=== PATIENT | male | born 1985 | race Hispanic/Latino ===

== ENCOUNTER 2016-06-01 08:48 | Inpatient (IN) | payer OTHER ==
[2016-06-01] MEDS ORDERED: Sodium Chloride 0.9% 1,000 ML IV STA (09:18)
[2016-06-01 09:35] LABS: ADD MANUAL DIFF? NO
[2016-06-01 09:48] LABS: PARTIAL THROMBOPLASTIN TIME 26.1 Seconds (23.7-30.8)
[2016-06-01 09:49] LABS: ALB/GLOB RATIO 1.3 (1.1-1.8); ALKALINE PHOSPHATASE 88 U/L (38-133); ALT/SGPT 83 U/L (7-56); AST/SGOT 65 U/L (15-59); BILIRUBIN,TOTAL 2.6 mg/dL (0.2-1.3); BLOOD UREA NITROGEN 18 mg/dL (7-21); CALCIUM 9.9 mg/dL (8.4-10.5); CARBON DIOXIDE 24 mmol/L (21-33); CHLORIDE 88 mmol/L (98-107); GFR AFRICAN-AMERICAN > 60; GLUCOSE,RANDOM 135 mg/dL (70-110); POTASSIUM 3.2 mmol/L (3.6-5.0); SODIUM 132 mmol/L (132-148); TOTAL PROTEIN 8.8 g/dL (5.8-8.3)
[2016-06-01 09:54] LABS: BASO # 0.01 K/mm3 (0.0-2.0); BASO % 0.1 % (0.0-3.0); GRAN # 15.53 (1.4-6.5); GRAN % 91.4 % (50.0-68.0); HEMATOCRIT 45.8 % (42.0-52.0); LYMPH # 0.7 (1.2-3.4); LYMPH % 4.2 % (22.0-35.0); MEAN CORPUSCULAR HEMOGLOBIN 30.1 pg (25.0-35.0); MEAN CORPUSCULAR HGB CONC 36.2 g/dl (31.0-37.0); MEAN PLATELET VOLUME 9.5 fl (7.0-11.0); MONO # 0.7 (0.1-0.6); MONO % 4.3 % (1.0-6.0); PLATELET COUNT 211 10^3/uL (120.0-450.0); RED CELL DISTRIBUTION WIDTH 13.2 % (11.5-14.5)
--- NOTE | 2016-06-01 10:16 | ED PDOC ---
Arrival/HPI - General Historian: Patient - General Chief Complaint: ENT Problem Time Seen by Provider: 06/01/16 09:14 - History of Present Illness Narrative History of Present Illness (Text): 06/01/16 10:04 31yo mal with PMhx of hypertension, anxiety and alcohol abuse who present with complaint of hiccups, sore throat and nonproductive cough since yesterday. States it started after binge drinking. He have multiple episodes of nonbloody/ bilious vomiting and diarrhea. States the vomiting and diarrhea stopped and then he started having hiccups, sore throat and cough. Reports binge drinking every other 3 to 4days. Denies hematemesis, melena, hematochezia, fever, chills , tremors, chest pain, SOB, any other complaint. (Roxann Connor) Past Medical History - Provider Review Nursing Documentation Reviewed: Yes - Infectious Disease Hx of Infectious Diseases: None - Cardiac Hx Hypertension: Yes - Psychiatric Hx Anxiety: Yes Hx Substance Use: No Family/Social History - Physician Review Nursing Documentation Reviewed: Yes Family/Social History: Unknown Family HX Smoking Status: Never Smoked Hx Alcohol Use: Yes Frequency of alcohol use: Daily Hx Substance Use: No Allergies/Home Meds Allergies/Adverse Reactions: Allergies No Known Allergies Allergy (Verified 06/01/16 08:59) Home Medications: Home Meds Medication Instructions Recorded Confirmed DULoxetine [Cymbalta] 20 mg PO DAILY 06/01/16 06/01/16 Lorazepam [Ativan] 0.5 mg PO PRN PRN 06/01/16 06/01/16 hydroCHLOROthiazide [Hydrodiuril] 25 mg PO DAILY 06/01/16 06/01/16 Review of Systems - Physician Review All systems were reviewed & negative as marked: Yes - Review of Systems Constitutional: Normal Eyes: Normal ENT: Sore Throat, Other (hiccups) Respiratory: Cough Cardiovascular: Normal Gastrointestinal: Normal Genitourinary Male: Normal Musculoskeletal: Normal Skin: Normal Neurological: Normal Endocrine: Normal Hemo/Lymphatic: Normal Psychiatric: Normal Physical Exam Vital Signs Reviewed: Yes Temperature: Afebrile Blood Pressure: Normal Pulse: Tachycardic Respiratory Rate: Normal Appearance: Positive for: Well-Appearing, Non-Toxic, Comfortable Pain Distress: None Mental Status: Positive for: Alert and Oriented X 3 - Systems Exam Head: Present: Atraumatic, Normocephalic Pupils: Present: PERRL Extroacular Muscles: Present: EOMI Conjunctiva: Present: Normal Mouth: Present: Moist Mucous Membranes Pharnyx: Present: ERYTHEMA, EXUDATE. No: TONSILS ENLARGED, Peritonsilar Swelling, Uvular Deviation, Muffled/Hoarse Voice, Strider, Soft Palate/Uvular Edema Neck: Present: Normal Range of Motion Respiratory/Chest: Present: Clear to Auscultation, Good Air Exchange. No: Respiratory Distress, Accessory Muscle Use, Wheezes, Decreased Breath Sounds, Rales, Retracting, Rhonchi Cardiovascular: Present: Regular Rate and Rhythm, Normal S1, S2. No: Murmurs Abdomen: Present: Normal Bowel Sounds. No: Tenderness, Distention, Peritoneal Signs Back: Present: Normal Inspection Upper Extremity: Present: Normal Inspection. No: Cyanosis, Edema Lower Extremity: Present: Normal Inspection. No: Edema Neurological: Present: GCS=15, CN II-XII Intact, Speech Normal Skin: Present: Warm, Dry, Normal Color. No: Rashes Psychiatric: Present: Alert, Oriented x 3, Normal Insight, Normal Concentration Vital Signs Temp Pulse Resp BP Pulse Ox 06/01/16 17:09 98.5 F 111 H 16 136/76 93 L 06/01/16 16:02 121 H 20 119/69 97 06/01/16 12:00 132 H 19 111/54 L 96 06/01/16 10:03 97.1 F L 122 H 20 136/74 96 06/01/16 08:52 97.6 F 115 H 18 105/50 L 96 Medical Decision Making ED Course and Treatment: I was available for consultation during PA evaluation. The chart was reviewed by me, and I agree with disposition. The documented history was done by the physician ethnology teacher. The documented physical exam was done by the physician ethnology teacher. The documented procedures were done by the physician ethnology teacher. (Robby Smith) 06/01/16 15:37 PT presented for stated history. He was tachy on presentation. Exudate and erythema was noted on exam. Chest was CTA b/l. Lab was ordered with elevated Cr , and mild elevation of anion gap. LFT was elevated. Potassium was repleted. Pt remain tachy after a bolus of NS and tremors of his upper extremity was noted. He was admitted for alcohol withdrawal. Case was DANYA Alcantara and he requested that pt be admitted to the Hospitalist. Case was DANYA Barreto and she accepted pt to her service. Result and plan was DW the pt and he agreed. (Geeta,Roxann A) - Lab Interpretations Lab Results: 06/01/16 09:25 06/01/16 09:25 Lab Results 06/01/16 10:30: Phosphorus 3.1, Magnesium 2.0 06/01/16 10:00: Direct Bilirubin 1.0 H, TSH 3rd Generation 2.56 06/01/16 09:25: WBC 17.0 H, RBC 5.52, Hgb 16.6, Hct 45.8, MCV 83.0, MCH 30.1, MCHC 36.2, RDW 13.2, Plt Count 211, MPV 9.5, Gran % 91.4 H, Lymph % (Auto) 4.2 L , [place] % (Auto) 4.3, Eos % (Auto) 0.0 L, Baso % (Auto) 0.1, Gran # 15.53 H, Lymph # 0.7 L, [place] # 0.7 H, Eos # 0.0, Baso # 0.01, PT 10.8, INR 1.00, APTT 26.1, Sodium 132, Potassium 3.2 L, Chloride 88 L, Carbon Dioxide 24, Anion Gap 23 H, BUN 18, Creatinine 1.5 H, Est GFR ( Amer) > 60, Est GFR (Non-Af Amer) 55, Random Glucose 135 H, Calcium 9.9, Total Bilirubin 2.6 H, AST 65 H, ALT 83 H, Alkaline Phosphatase 88, Total Protein 8.8 H, Albumin 5.0 H, Globulin 3.9, Albumin/Globulin Ratio 1.3, Alcohol, Quantitative < 10 - RAD Interpretation Radiology Orders: 06/01/16 10:19 CHEST PORTABLE [RAD] Stat - Medication Orders Current Medication Orders: Amoxicillin/Clavulanate Potassium (Augmentin 875 Mg-125 Mg Tab) 1 tab PO Q12 ISIAH PRN Reason: Protocol Benzocaine/Menthol (Cepacol Sore Throat) 1 calos MT Q2H PRN PRN Reason: Sore Throat Last Admin: 06/01/16 16:57 Dose: 1 CALOS Chlordiazepoxide (Librium) 25 mg PO Q6 ISIAH PRN Reason: Protocol Famotidine (Pepcid) 20 mg PO BID ISIAH Folic Acid 1 mg/ Thiamine HCl 100 mg/ Multivitamins/Vitamin C 10 ml/ Dextrose 1 ,011.2 mls @ 150 mls/hr IV .Q6H45M ISIAH Stop: 06/02/16 19:42 Last Admin: 06/01/16 17:46 Dose: 150 MLS/HR eMAR Start Stop Document 06/01/16 17:46 MMA (Rec: 06/01/16 17:46 [id number] Intravenous Solution Start Date 06/01/16 Start Time 17:46 End Date 06/01/16 Ibuprofen (Motrin Tab) 400 mg PO Q6 PRN PRN Reason: Pain, moderate (4-7) Lorazepam (Ativan) 2 mg IVP Q2 PRN; Protocol PRN Reason: Agitation Prochlorperazine (Compazine Tab) 5 mg PO TID PRN PRN Reason: Nausea/Vomiting Discontinued Medications Chlordiazepoxide (Librium) 25 mg PO STAT STA PRN Reason: Protocol Stop: 06/01/16 11:36 Last Admin: 06/01/16 12:19 Dose: 25 MG Behavioural Document 06/01/16 12:19 MMA (Rec: 06/01/16 12:19 [id number] Maintenance Maintenance Dose No Nonmedicinal Nonmedicinal Interventions Therapeutic Communication Activity Behavior Behavior for Medication: Anxiety Chlorpromazine (Thorazine) 25 mg PO ONCE STA PRN Reason: Protocol Stop: 06/01/16 09:19 Last Admin: 06/01/16 09:56 Dose: 25 MG Behavioural Document 06/01/16 09:56 MMA (Rec: 06/01/16 10:02 [id number] Maintenance Maintenance Dose No Nonmedicinal Nonmedicinal Interventions Therapeutic Communication Comment N/A THORAZINE GIVEN FOR HICCUPS Behavior Behavior for Medication: Anxiety Behavior Comment THORAZINE GIVEN FOR HICCUPS Dexamethasone (Decadron Inj) 10 mg IVP STAT STA Stop: 06/01/16 10:54 Last Admin: 06/01/16 12:20 Dose: 10 MG IVP Administration Document 06/01/16 12:20 MMA (Rec: 06/01/16 12:20 [id number] Charges for Administration # of IVP Administrations 1 Famotidine (Pepcid) 20 mg IVP STAT STA Stop: 06/01/16 17:03 Last Admin: 06/01/16 17:19 Dose: 20 MG IVP Administration Document 06/01/16 17:19 MMA (Rec: 06/01/16 17:19 MMA [id number]) Charges for Administration # of IVP Administrations 1 Sodium Chloride (Sodium Chloride 0.9%) 1,000 mls @ 999 mls/hr IV .Q1H1M STA Stop: 06/01/16 10:18 Last Admin: 06/01/16 09:54 Dose: 999 MLS/HR eMAR Start Stop Document 06/01/16 09:54 MMA (Rec: 06/01/16 09:54 MMA [id number]) Intravenous Solution Start Date 06/01/16 Start Time 09:54 End Date 06/01/16 End time 10:54 Total Infusion Time 60 Multivitamins/Vitamin C 10 ml/Thiamine HCl 100 mg/ Folic Acid 1 mg/ Dextrose 1, 011.2 mls @ 1,000 mls/hr IV .Q1H1M ONE Stop: 06/01/16 12:34 Last Admin: 06/01/16 12:13 Dose: 1,000 MLS/HR eMAR Start Stop Document 06/01/16 12:13 MMA (Rec: 06/01/16 12:14 MMA [id number]) Intravenous Solution Start Date 06/01/16 Start Time 12:13 End Date 06/01/16 End time 13:13 Total Infusion Time 60 Potassium Chloride (Potassium Chloride 20 Meq/100 Ml) 100 mls @ 50 mls/hr IVPB ONCE ONE Stop: 06/01/16 17:18 Last Admin: 06/01/16 16:39 Dose: 50 MLS/HR eMAR Start Stop Document 06/01/16 16:39 MMA (Rec: 06/01/16 16:40 MMA [id number]) Intravenous Solution Start Date 06/01/16 Start Time 16:39 End Date 06/01/16 End time 18:40 Total Infusion Time 121 Lorazepam (Ativan) 1 mg IVP ONCE ONE PRN Reason: Protocol Stop: 06/01/16 11:36 Last Admin: 06/01/16 12:19 Dose: 1 MG Behavioural Document 06/01/16 12:19 MMA (Rec: 06/01/16 12:19 [facility] [id number]) Maintenance Maintenance Dose No Nonmedicinal Nonmedicinal Interventions Therapeutic Communication Behavior Behavior for Medication: Anxiety IVP Administration Document 06/01/16 12:19 [facility] (Rec: 06/01/16 12:19 [facility] [id number]) Charges for Administration # of IVP Administrations 1 Penicillin V Potassium (Penicillin Vk Tab) 500 mg PO STAT STA PRN Reason: Protocol Stop: 06/01/16 10:55 Last Admin: 06/01/16 12:18 Dose: 500 MG Potassium Chloride (K-Dur 20 Meq Er Tab) 40 meq PO STAT STA Stop: 06/01/16 10:54 Last Admin: 06/01/16 12:20 Dose: 40 MEQ Thiamine HCl (Vitamin B1 Inj) Confirm Administered Dose 200 mg .ROUTE .STK-MED ONE Stop: 06/01/16 12:17 ED OBSERVATION Discharge: Yes Date of observation admission: 06/01/16 Time of observation admission: 10:40 - Observation admission statement Patient is being placed in observation because:: Labs ordered NS, Thorazine, PCN ordered Will re evaluate (Roxann Connor) Disposition/Present on Arrival - Present on Arrival Any Indicators Present on Arrival: No History of DVT/PE: No History of Uncontrolled Diabetes: No Urinary Catheter: No History of Decub. Ulcer: No History Surgical Site Infection Following: None - Disposition Have Diagnosis and Disposition been Completed?: Yes Disposition Time: 13:50 - Disposition Diagnosis: Alcohol withdrawal, Tachycardia, Tonsillitis, Cough, Singultus Disposition: HOSPITALIZED Patient Problems: Current Active Problems Problem Status Diagnosed Alcohol withdrawal Acute Cough Acute Singultus Acute Tachycardia Acute Tonsillitis Acute Condition: FAIR
[2016-06-01] MEDS ORDERED: Potassium Chloride 20 mEq ER Tab PO STA (10:53)
--- NOTE | 2016-06-01 11:17 | RAD ---
HISTORY: cough COMPARISON: No prior. FINDINGS: LUNGS: No active pulmonary disease. PLEURA: No significant pleural effusion identified, no pneumothorax apparent. CARDIOVASCULAR: Normal. OSSEOUS STRUCTURES: No significant abnormalities. VISUALIZED UPPER ABDOMEN: Normal. OTHER FINDINGS: None. IMPRESSION: No active disease.
[2016-06-01] MEDS ORDERED: Multivitamin (MVI) 10 ML, Thiamine 100 MG, Folic Acid 1 MG in Dextrose 5% In Water 1,00... IV ONE (11:34)
--- NOTE | 2016-06-01 11:37 | CARD ---
APPROVED REPORT EKG Measurement Heart [id number] <Conclusion> Sinus tachycardia NSSTW changes Prolonged QTc
[2016-06-01] MEDS ORDERED: Thiamine 100 mg/ml Inj ONE (12:16)
[2016-06-01 14:52] LABS: PHOSPHOROUS 3.1 mg/dL (2.5-4.5)
[2016-06-01] MEDS ORDERED: Potassium Chloride 20 mEq 100 ML IVPB ONE (15:19)
[2016-06-01 16:18] LABS: PH,URINE 6.5 (4.7-8.0); URINE BILIRUBIN SMALL (NEGATIVE); URINE BLOOD TRACE-LYSED (NEGATIVE); URINE GLUCOSE (UA) 250 mg/dL (NEGATIVE); URINE KETONE 15 mg/dL (NEGATIVE); URINE LEUKOCYTE ESTERASE NEGATIVE Leu/uL (NEGATIVE); URINE PROTEIN NEGATIVE mg/dL (<30 mg/dL); URINE UROBILINOGEN 0.2 E.U./dL (<1 E.U./dL)
[2016-06-01 16:19] LABS: URINE APPEARANCE CLEAR (CLEAR); URINE COLOR STRAW (YELLOW)
[2016-06-01 16:26] LABS: URINE BACTERIA NEG (NEG); URINE EPITHELIAL CELLS 0 - 2 /hpf (0-5); URINE RBC NEGATIVE /hpf (0-2); URINE WBC 0 - 2 /hpf (0-6)
[2016-06-01] MEDS: Benzocaine/Menthol (Cepacol) Lozenge MT PRN ×2 (16:57→22:54)
--- NOTE | 2016-06-01 16:58 | CP.PCM.HP ---
<Caron Gaona - Last Filed: 06/01/16 17:57> History of Present Illness - History of Present Illness History of Present Illness: H&P for Dr. Maya Barreto: CC: severe sore throat, epigastric pain, vomiting and diarrhea. [id number]-male with PMH of HTN, anxiety, alcohol abuse, and seizures at 8 and 10 years old presented to [facility] ED for complaints of severe sore throat, epigastric pain, vomiting and diarrhea. On Sunday, the patient consumed a pint or more of liquor throughout the day. On Sunday, he had multiple episodes of non-bloody, non-bilious emesis and 5-6 episodes of non-bloody diarrhea throughout the day. Additionally, he developed a dry cough and a severe sore throat. The patient came to the ED because he could not tolerate the sore throat and epigastric pain. He rates his pain as 8/10 in severity and he has not been eating much due to his sore throat. Patient was intoxicated when he fell into a glass table; he denies any memory of this but denies hitting his head or sustaining lacerations. However, he has two large bruises covering his right lateral chest and right hip. Admits to odynophagia and sweating. Patient denies vision and hearing changes, pain radiating to the back, melena, hematochezia, hemoptysis, dysuria, hematuria, CP, SOB, fevers, chills, nasal congestion, ear pain, muscle weakness, and numbness and tingling. Denies any sick contacts or travel. Patient admits to heavy binge drinking every few days for the past 3 years. PMH: HTN, anxiety, alcohol abuse, and seizures at 8 and 10 years old. PSH: denies PFH: HTN Social: Has been drinking since 22, but has been binge drinking more heavily over the last 3 years. When he binges, he has about 10-15 drinks. Denies tobacco and illicit drug use. Works as an ER Physician Environmental Lawyer Allergies: NKDA PMD: Dr. Hinton [place] Meds: HCTZ, Lisinopril, Cymbalta, and Ativan Present on Admission - Present on Admission Any Indicators Present on Admission: No Review of Systems - Review of Systems All systems: reviewed and no additional remarkable complaints except (as per HPI ) - Constitutional Constitutional: As Per HPI. absent: Frequent Falls, Headache, Weakness - EENT Eyes: absent: Blurred Vision, Change in Vision Ears: As Per HPI Nose/Mouth/Throat: As Per HPI - Cardiovascular Cardiovascular: As Per HPI. absent: Lightheadedness, Radiating Pain, Syncope - Respiratory Respiratory: As Per HPI. absent: Pain on Inspiration - Gastrointestinal Gastrointestinal: As Per HPI - Genitourinary Genitourinary: As Per HPI - Musculoskeletal Musculoskeletal: As Per HPI. absent: Back Pain, Muscle Weakness, Numbness, Tingling - Integumentary Integumentary: As Per HPI. absent: Bleeding Lesions, New Lesions, Non-Healing Lesions, Rash - Neurological Neurological: As Per HPI. absent: Disequilibrium, Focal Weakness - Endocrine Endocrine: absent: Palpitations - Hematologic/Lymphatic Hematologic: absent: Easy Bleeding, Easy Bruising Past Patient History - Infectious Disease Hx of Infectious Diseases: None - Past Social History Smoking Status: Never Smoked Chewing Tobacco Use: No Cigar Use: No Alcohol: Other (Heavy binge drinker every few days) Drugs: Denies Home Situation {Lives}: With Family - CARDIAC Hx Cardiac Disorders: Yes Hx Hypertension: Yes - NEUROLOGICAL Hx Seizures: Yes (childhood x2) - PSYCHIATRIC Hx Anxiety: Yes Hx Substance Use: No - SURGICAL HISTORY Hx Surgeries: No Meds Home Medications: Home Medication List Medication Instructions Recorded Confirmed Type Amoxicillin/Clavulanate [Augmentin 1 tab PO Q12 #8 tab 06/03/16 Rx 875 MG-125 MG Tab] Folic Acid 1 mg PO DAILY #14 tab 06/03/16 Rx Multivitamin [Men's Multi-Vitamin] 1 each PO DAILY #14 tablet 06/03/16 Rx Promethazine [Phenergan Syrup] 12.5 mg PO PRN PRN #10 dose 06/03/16 Rx Thiamine [Vitamin B-1] 100 mg PO DAILY #14 tab 06/03/16 Rx Allergies/Adverse Reactions: Allergies Allergy/AdvReac Type Severity Reaction Status Date / Time No Known Allergies Allergy Verified 06/01/16 08:59 Physical Exam - Constitutional Appears: Non-toxic, No Acute Distress - Head Exam Head Exam: ATRAUMATIC, NORMOCEPHALIC - Eye Exam Eye Exam: EOMI, Normal appearance, PERRL. absent: Scleral icterus Pupil Exam: PERRL - ENT Exam ENT Exam: Mucous Membranes Dry, Normal External Ear Exam - Expanded ENT Exam Expanded Ear exam: absent: Auricular Hematoma, Auricular Trauma, External Canal Tenderness Mouth exam: dry mucosa, normal external inspection Throat exam: Post Pharyngeal Erythema, Tonsillar Erythema, Tonsillar Exudate, Tonsillomegaly - Neck Exam Neck exam: Positive for: Lymphadenopathy, Tenderness - Respiratory Exam Respiratory Exam: Clear to Auscultation Bilateral, NORMAL BREATHING PATTERN. absent: Accessory Muscle Use, Decreased Breath Sounds - Cardiovascular Exam Cardiovascular Exam: Tachycardia, REGULAR RHYTHM, +S1, +S2. absent: RRR - GI/Abdominal Exam GI & Abdominal Exam: Soft. absent: Distended, Tenderness - Extremities Exam Extremities exam: Positive for: normal inspection. Negative for: calf tenderness, pedal edema - Back Exam Back exam: NORMAL INSPECTION. absent: CVA tenderness (L), CVA tenderness (R), paraspinal tenderness Additional comments: Right-sided bruising on lateral ribs and hip - Neurological Exam Neurological exam: Alert, CN II-XII Intact, Oriented x3 - Psychiatric Exam Psychiatric exam: Normal Affect, Normal Mood - Skin Skin Exam: Diaphoretic, Intact, Normal Color, Warm Results - Vital Signs Recent Vital Signs: Last Vital Signs Temp 97.1 F L 06/01/16 10:03 Pulse 121 H 06/01/16 16:02 Resp 20 06/01/16 16:02 BP 119/69 06/01/16 16:02 Pulse Ox 97 06/01/16 16:02 - Labs Result Diagrams: 06/01/16 09:25 06/01/16 09:25 Labs: Laboratory Results - last 24 hr 06/01/16 16:09 Urine Color Straw Urine Appearance Clear Urine pH 6.5 Ur Specific Rhodes <= 1.005 Urine Protein Negative Urine Glucose (UA) 250 H Urine Ketones 15 H Urine Blood Trace-lysed H Urine Nitrate Negative Urine Bilirubin Small H Urine Urobilinogen 0.2 Ur Leukocyte Esterase Negative Urine RBC Negative Urine WBC 0 - 2 Ur Epithelial Cells 0 - 2 Urine Bacteria Neg - Imaging and Cardiology Chest x-ray Status: Image reviewed by me, Report reviewed by me Assessment & Plan - Assessment and Plan (Free Text) Assessment: 31-year-old Male with PMH of HTN, anxiety, and alcohol abuse with tonsillitis and ETOH abuse. EKG showed NSR with QTc prolongation 1.Pharyngitis/Tonsillitis WBC:17.1 Exudates on exam Plan Rapid strep test Cepacol lozenges Ibuprofen for pain relief Augmentin 2.Alcohol Abuse/alcohol withdrawal Alcohol level: <10 Magnesium, phosph, and H/H wnl Plan Banana Bag @ 150 cc/hr Librium 25mgQ6 Ativan 2mgQ2 PRN CIWA Score check Urine Drug Screen TSH Liquid diet 3.Hypokalemia K: 3.2 Plan IV K Trend CMP Monitor EKG 4.Nausea/vomiting/epigastric pain Improved, tolerating food Abdominal exam benign hypokalemia, elevated LFT's Plan IVF Compazine PRN for nausea Full liquid diet 5.Leukocytosis WBC: 17 Plan procalcitonin Augmentin f/u CBC tomorrow Rapid strep test 6.Transaminitis Bili: 2.6, AST: 65, ALT: 83 AST/ALT: less than 2:1, alk phos wnl Plan: Indirect and Direct bilirubin Hepatitis panel Trend levels 8.KRISTEN 2/2 dehydration -Banana bag -Trend creatinine 9. Tachycardia IVF Treat infection manage pain continue to monitor Patient seen and plan discussed with Dr. Estevan Gaona, PGY1 <Maya Barreto - Last Filed: 06/03/16 12:54> Results - Vital Signs Recent Vital Signs: Last Vital Signs Temp 98.3 F 06/03/16 06:00 Pulse 88 06/03/16 09:30 Resp 19 06/03/16 06:00 BP 142/78 06/03/16 09:30 Pulse Ox 100 06/03/16 06:00 - Labs Result Diagrams: 06/03/16 07:00 06/03/16 07:00 Labs: Laboratory Results - last 24 hr 06/02/16 06/03/16 06/03/16 07:00 07:00 10:00 WBC 7.0 D RBC 4.36 Hgb 12.8 L Hct 37.3 L MCV 85.6 MCH 29.4 MCHC 34.3 RDW 13.4 Plt Count 123 MPV 9.5 Gran % 67.0 Lymph % (Auto) 21.6 L [place] % (Auto) 10.0 H Eos % (Auto) 1.3 L Baso % (Auto) 0.1 Gran # 4.67 Lymph # 1.5 [place] # 0.7 H Eos # 0.1 Baso # 0.01 Sodium 134 Potassium 3.4 L Chloride 101 Carbon Dioxide 25 Anion Gap 11 BUN 13 Creatinine 0.8 Est GFR ( Amer) > 60 Est GFR (Non-Af Amer) > 60 Random Glucose 107 Calcium 8.5 Phosphorus 2.8 Magnesium 1.9 Total Bilirubin 1.0 AST 67 H ALT 83 H Alkaline Phosphatase 51 Total Protein 6.4 Albumin 3.5 Globulin 2.9 Albumin/Globulin Ratio 1.2 Hepatitis A IgM Ab Negative Hep Bs Antigen Negative Hep B Core IgM Ab Negative Hepatitis C Antibody Negative Attending/Attestation - Attestation I have personally seen and examined this patient.: Yes I have fully participated in the care of the patient.: Yes I have reviewed all pertinent clinical information: Yes Notes (Text): I have seen and examined patient at bedside. 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 Patient is requesting to be discharged however he was explained that he needs to stay. He states that he has been binge drinking alcohol and has been having vomiting and diarrhea. He also appears to be very dehydrated. Will admit patient to remote tele. Will order for hep panel, cultures, procal, rapid strep, lozenges, analgesics, motrin , banana bag and librium. Alcohol cessation counselling provided. Patients mother is at bedside who informed us that patient and his has been binge drinking alcohol. He has anxiety disorder and has an appointment to see outpatient psychiatrist. At this time, patient is alert, active, oriented x 3 and has tremors, diaphoresis, anxiety and is mildly agitated. No suicidal or homicidal ideation. Patient is not willing to see any psychiatrist. Upon discharge patient will follow up with Dr Hinton. Dr Maya Barreto
[2016-06-01] MEDS: Folic Acid 1 MG, Thiamine 100 MG, Multivitamin (MVI) 10 ML in Dextrose 5% In Water 1,00... IV SCH ×2 (17:46→22:54)
[2016-06-01 22:33] VITALS: BMI 31.5
[2016-06-01] MEDS ORDERED: Pneumococcal 23-Valent Vaccine IM ONE (22:33)
[2016-06-01] MEDS: Amoxicillin-Clav 875-125 mg Tab PO SCH (22:53)
[2016-06-02] MEDS: guaiFENesin DM 100 mg-10 mg/5 ml UD PO PRN ×4 (01:30→22:42)
[2016-06-02 07:52] LABS: ADD MANUAL DIFF? NO
[2016-06-02 07:57] LABS: BASO # 0.01 K/mm3 (0.0-2.0); BASO % 0.1 % (0.0-3.0); EOS % 0.1 % (1.5-5.0); GRAN # 8.15 (1.4-6.5); GRAN % 82.7 % (50.0-68.0); HEMATOCRIT 38.6 % (42.0-52.0); MEAN CELL VOLUME 84.1 fL (80.0-105.0); MEAN CORPUSCULAR HEMOGLOBIN 29.2 pg (25.0-35.0); MEAN CORPUSCULAR HGB CONC 34.7 g/dl (31.0-37.0); MEAN PLATELET VOLUME 9.6 fl (7.0-11.0); MONO # 0.7 (0.1-0.6); MONO % 7.1 % (1.0-6.0); PLATELET COUNT 138 10^3/uL (120.0-450.0); RED CELL DISTRIBUTION WIDTH 13.4 % (11.5-14.5); WHITE BLOOD COUNT 9.9 10^3/ul (4.5-11.0)
[2016-06-02 08:23] LABS: ALB/GLOB RATIO 1.3 (1.1-1.8); ALKALINE PHOSPHATASE 69 U/L (38-133); ALT/SGPT 76 U/L (7-56); AST/SGOT 57 U/L (15-59); BILIRUBIN,TOTAL 1.7 mg/dL (0.2-1.3); BLOOD UREA NITROGEN 16 mg/dL (7-21); CALCIUM 8.6 mg/dL (8.4-10.5); CARBON DIOXIDE 26 mmol/L (21-33); CHLORIDE 97 mmol/L (98-107); GFR AFRICAN-AMERICAN > 60; GLUCOSE,RANDOM 107 mg/dL (70-110); SODIUM 133 mmol/L (132-148)
[2016-06-02 08:25] LABS: POTASSIUM 2.9 mmol/L (3.6-5.0)
[2016-06-02] MEDS ORDERED: Potassium Chloride 20 mEq ER Tab PO STA (08:35)
[2016-06-02 09:01] LABS: MAGNESIUM 2.3 mg/dL (1.7-2.2); PHOSPHOROUS 1.5 mg/dL (2.5-4.5)
[2016-06-02] MEDS: Benzocaine/Menthol (Cepacol) Lozenge MT PRN (09:39)
[2016-06-02] MEDS: Amoxicillin-Clav 875-125 mg Tab PO SCH ×2 (09:39→21:15)
[2016-06-02] MEDS: Potassium Chloride 20 mEq 100 ML IVPB SCH ×2 (09:43→13:44)
--- NOTE | 2016-06-02 11:40 | CARD ---
APPROVED REPORT EKG Measurement Heart [id number] <Conclusion> Sinus tachycardia Nonspecific T wave abnormality Prolonged QTc
[2016-06-02] MEDS ORDERED: Pantoprazole 40 mg EC Tab PO ONE (13:24)
--- NOTE | 2016-06-02 16:41 | CP.PCM.PN ---
<Caron Gaona - Last Filed: 06/02/16 21:36> Subjective - Date & Time of Evaluation Date of Evaluation: 06/02/16 Time of Evaluation: 09:15 - Subjective Subjective: Hospitalist progress note for Dr. Barreto Pt s/e at bedside this AM. Overnight nurse reported patient was confused and had visual hallucinations, requiring 2 doses of ativan. Patient was also hypertensive early this AM of 151/107 and tachycardia present. Patient states that he feels fine, that his throat pain is much improved, and his nausea, vomiting, diarrhea, and epigastric pain have resolved. Denies chest pain, cough , constipation, back pain, headaches, tremors, agitation, or any other symptoms. Patient states that he knows he needs to quit drinking and has an appointment with an outpatient psychiatrist next week Objective - Vital Signs/Intake and Output Vital Signs (last 24 hours): Temp Pulse Resp BP Pulse Ox 98.1 F 122 H 19 150/80 98 06/02/16 08:00 06/02/16 09:43 06/02/16 08:00 06/02/16 09:43 06/02/16 08:00 Intake and Output: 06/02/16 06/02/16 06:59 18:59 Intake Total 4500 1000 Balance 4500 1000 - Medications Medications: Current Medications Amlodipine Besylate (Norvasc) 10 mg PO DAILY ISIAH Last Admin: 06/02/16 09:42 Dose: 10 mg Amoxicillin/Clavulanate Potassium (Augmentin 875 Mg-125 Mg Tab) 1 tab PO Q12 ISIAH PRN Reason: Protocol Last Admin: 06/02/16 09:39 Dose: 1 tab Benzocaine/Menthol (Cepacol Sore Throat) 1 antoinette MT Q2H PRN PRN Reason: Sore Throat Last Admin: 06/02/16 09:39 Dose: 1 antoinette Chlordiazepoxide (Librium) 25 mg PO Q8 ISIAH PRN Reason: Protocol Last Admin: 06/02/16 14:00 Dose: 25 mg Famotidine (Pepcid) 20 mg PO BID ISIAH Last Admin: 06/02/16 09:43 Dose: 20 mg Guaifenesin/Dextromethorphan (Robitussin Dm) 5 ml PO Q4H PRN PRN Reason: Cough Last Admin: 06/02/16 09:44 Dose: 5 ml Folic Acid 1 mg/ Thiamine HCl 100 mg/ Multivitamins/Vitamin C 10 ml/ Dextrose 1 ,011.2 mls @ 150 mls/hr IV .Q6H45M [facility] Stop: 06/02/16 19:42 Last Admin: 06/01/16 22:54 Dose: 150 mls/hr Ibuprofen (Motrin Tab) 400 mg PO Q6 PRN PRN Reason: Pain, moderate (4-7) Lisinopril (Zestril) 20 mg PO DAILY [facility] Last Admin: 06/02/16 09:43 Dose: 20 mg Lorazepam (Ativan) 2 mg IVP Q2 PRN; Protocol PRN Reason: Agitation Last Admin: 06/02/16 13:42 Dose: 2 mg Prochlorperazine (Compazine Tab) 5 mg PO TID PRN PRN Reason: Nausea/Vomiting - Labs Labs: 06/02/16 07:00 06/02/16 07:00 PT 10.8 Seconds (9.9-11.8) 06/01/16 09:25 INR 1.00 (0.93-1.08) 06/01/16 09:25 APTT 26.1 Seconds (23.7-30.8) 06/01/16 09:25 - Constitutional Appears: Well, Non-toxic - Head Exam Head Exam: ATRAUMATIC, NORMOCEPHALIC - Eye Exam Eye Exam: Normal appearance. absent: Conjunctival injection, Scleral icterus - ENT Exam ENT Exam: Mucous Membranes Moist Additional comments: persistent but improved erythema and exudates in the pharynx - Respiratory Exam Respiratory Exam: Clear to Ausculation Bilateral. absent: Accessory Muscle Use , Respiratory Distress - Cardiovascular Exam Cardiovascular Exam: Tachycardia, +S1, +S2. absent: Murmur - GI/Abdominal Exam GI & Abdominal Exam: Soft. absent: Distended, Tenderness - Extremities Exam Extremities Exam: absent: Calf Tenderness, Pedal Edema, Tenderness - Back Exam Back Exam: absent: CVA tenderness (L), CVA tenderness (R), vertebral tenderness - Neurological Exam Neurological Exam: Alert, Awake, Oriented x3 Additional comments: no tremor - Psychiatric Exam Psychiatric exam: Normal Affect, Normal Mood - Skin Skin Exam: Diaphoretic, Intact, Normal Color, Warm Assessment and Plan - Assessment and Plan (Free Text) Assessment: 31-year-old Male with PMH of HTN, anxiety, and alcohol abuse with tonsillitis and ETOH abuse 1.Pharyngitis/Tonsillitis WBC:17.1-->9.9 Exam improving but not resolved Rapid strep test negative blood cultures: [id number] Urine culture: negative Plan Cepacol lozenges Ibuprofen for pain relief Augmentin 2.Alcohol Abuse/alcohol withdrawal Alcohol level: <10 Magnesium, phosph, and H/H wnl Hallucinations overnight UDS negative TSH wnl Plan Banana Bag @ 150 cc/hr Librium 25mgQ8 Ativan 2mgQ2 PRN CIWA Score checks Follow up with outpatient psychiatrist 3.Hypokalemia K: 3.2->2.9 Plan 40mEq KCl IV 40mg KDur Trend CMP Monitor EKG 4. HTN 151/107 today Plan restart home lisinopril, amlodipine, and add 4.Nausea/vomiting/epigastric pain Improved, tolerating food Abdominal exam benign hypokalemia worse, elevated LFT's--improving Plan Compazine PRN for nausea regular diet K supplementation 5.Leukocytosis resolved rapid strep test negative blood cultures: [id number] Urine culture: negative Plan Augmentin f/u CBC tomorrow 6.Transaminitis improving but persistent direct bilirubin 06/01: 1.0 (elevated) Hepatitis panel negative Plan: Trend levels advise abstinence from ETOH 8.KRISTEN 2/2 dehydration -Banana bag -Trend creatinine -trend K 9. Tachycardia IVF Treat infection manage pain continue to monitor Dispo: patient to stay on remote tele for at least one more midnight. Possible D /C tomorrow AM Patient seen and plan discussed with Dr. Estevan Gaona, PGY1 <Maya Barreto B - Last Filed: 06/03/16 12:58> Objective - Vital Signs/Intake and Output Vital Signs (last 24 hours): Temp Pulse Resp BP Pulse Ox 98.3 F 88 19 142/78 100 06/03/16 06:00 06/03/16 09:30 06/03/16 06:00 06/03/16 09:30 06/03/16 06:00 Intake and Output: 06/03/16 06/03/16 06:59 18:59 Intake Total 2140 Balance 2140 - Labs Labs: 06/03/16 07:00 06/03/16 07:00 PT 10.8 Seconds (9.9-11.8) 06/01/16 09:25 INR 1.00 (0.93-1.08) 06/01/16 09:25 APTT 26.1 Seconds (23.7-30.8) 06/01/16 09:25 Attending/Attestation - Attestation I have personally seen and examined this patient.: Yes I have fully participated in the care of the patient.: Yes I have reviewed all pertinent clinical information, including history, physical exam and plan: Yes Notes (Text): I have seen and examined patient at bedside. 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 Patient is requesting to be discharged however he was explained that he needs to stay for atleast one more day. He had visual hallucinations overnight and has been having mild withdrawal symptoms. Will taper ativan. Dehydration has improved somewhat. Continue remote tele monitoring. Rapid strep is negative. Hep panel and UDS negative. Alcohol cessation counselling provided. Patients mother is at bedside who informed us that patient and his has been binge drinking alcohol. He has anxiety disorder and has an appointment to see outpatient psychiatrist. At this time, patient is alert, active, oriented x 3 and has mild tremors and appears calm. Denies headache, nausea, vomiting or diarrhea. No suicidal or homicidal ideation. Patient is not willing to see any psychiatrist. Upon discharge patient will follow up with Dr Hinton. Dr Maya Barreto
[2016-06-02] MEDS: Folic Acid 1 MG, Thiamine 100 MG, Multivitamin (MVI) 10 ML in Dextrose 5% In Water 1,00... IV SCH (22:34)
[2016-06-03] MEDS: Folic Acid 1 MG, Thiamine 100 MG, Multivitamin (MVI) 10 ML in Dextrose 5% In Water 1,00... IV SCH (07:01)
[2016-06-03 07:32] LABS: ADD MANUAL DIFF? NO
[2016-06-03 07:54] LABS: BASO # 0.01 K/mm3 (0.0-2.0); BASO % 0.1 % (0.0-3.0); EOS # 0.1 (0.0-0.7); EOS % 1.3 % (1.5-5.0); GRAN # 4.67 (1.4-6.5); HEMATOCRIT 37.3 % (42.0-52.0); LYMPH # 1.5 (1.2-3.4); LYMPH % 21.6 % (22.0-35.0); MEAN CELL VOLUME 85.6 fL (80.0-105.0); MEAN CORPUSCULAR HEMOGLOBIN 29.4 pg (25.0-35.0); MEAN CORPUSCULAR HGB CONC 34.3 g/dl (31.0-37.0); MEAN PLATELET VOLUME 9.5 fl (7.0-11.0); MONO # 0.7 (0.1-0.6); PLATELET COUNT 123 10^3/uL (120.0-450.0); RED CELL DISTRIBUTION WIDTH 13.4 % (11.5-14.5)
[2016-06-03 08:02] LABS: ALB/GLOB RATIO 1.2 (1.1-1.8); ALKALINE PHOSPHATASE 51 U/L (38-133); ALT/SGPT 83 U/L (7-56); AST/SGOT 67 U/L (15-59); BLOOD UREA NITROGEN 13 mg/dL (7-21); CALCIUM 8.5 mg/dL (8.4-10.5); CARBON DIOXIDE 25 mmol/L (21-33); CHLORIDE 101 mmol/L (95-110); GFR AFRICAN-AMERICAN > 60; GLUCOSE,RANDOM 107 mg/dL (70-110); POTASSIUM 3.4 mmol/L (3.6-5.0); SODIUM 134 mmol/L (132-148); TOTAL PROTEIN 6.4 g/dL (5.8-8.3)
[2016-06-03] MEDS ORDERED: Potassium Chloride 20 mEq ER Tab PO ONE (08:08)
[2016-06-03 09:15] VITALS: RESP 19; TEMP 98.3; O2SAT 100
[2016-06-03] MEDS: Amoxicillin-Clav 875-125 mg Tab PO SCH (09:31)
[2016-06-03 09:33] VITALS: BP 142/78; PULSE 88
[2016-06-03 10:12] LABS: MAGNESIUM 1.9 mg/dL (1.7-2.2); PHOSPHOROUS 2.8 mg/dL (2.5-4.5)
--- NOTE | 2016-06-05 17:55 | CP.PCM.DIS ---
<Ambreen Nino - Last Filed: 06/16/16 15:24> Provider - Provider Date of Admission: 06/01/16 14:07 Attending physician: Maya Barreto MD Primary care physician: NO PRIMARY CARE PROVIDER Consults: Dr. Bob, psychiatry Time Spent in preparation of Discharge (in minutes): 35 Hospital Course - Lab Results Lab Results: Micro Results 06/01/16 15:30 Blood Blood Culture - Preliminary NO GROWTH AFTER 4 DAYS 06/01/16 15:00 Blood Blood Culture - Preliminary NO GROWTH AFTER 4 DAYS 06/01/16 17:45 Urine Urine Culture - Final No Growth (<1,000 CFU/ML) 06/01/16 17:45 Throat Group A Strep Throat Culture - Final NO BETA STREP GROUP A ISOLATED. Most Recent Lab Values WBC 7.0 10^3/ul (4.5-11.0) D 06/03/16 07:00 RBC 4.36 10^6/uL (3.5-6.1) 06/03/16 07:00 Hgb 12.8 gm/dL (14.0-18.0) L 06/03/16 07:00 Hct 37.3 % (42.0-52.0) L 06/03/16 07:00 MCV 85.6 fL (80.0-105.0) 06/03/16 07:00 MCH 29.4 pg (25.0-35.0) 06/03/16 07:00 MCHC 34.3 g/dl (31.0-37.0) 06/03/16 07:00 RDW 13.4 % (11.5-14.5) 06/03/16 07:00 Plt Count 123 10^3/uL (120.0-450.0) 06/03/16 07:00 MPV 9.5 fl (7.0-11.0) 06/03/16 07:00 Gran % 67.0 % (50.0-68.0) 06/03/16 07:00 Lymph % (Auto) 21.6 % (22.0-35.0) L 06/03/16 07:00 Letcher % (Auto) 10.0 % (1.0-6.0) H 06/03/16 07:00 Eos % (Auto) 1.3 % (1.5-5.0) L 06/03/16 07:00 Baso % (Auto) 0.1 % (0.0-3.0) 06/03/16 07:00 Gran # 4.67 (1.4-6.5) 06/03/16 07:00 Lymph # 1.5 (1.2-3.4) 06/03/16 07:00 Letcher # 0.7 (0.1-0.6) H 06/03/16 07:00 Eos # 0.1 (0.0-0.7) 06/03/16 07:00 Baso # 0.01 K/mm3 (0.0-2.0) 06/03/16 07:00 PT 10.8 Seconds (9.9-11.8) 06/01/16 09:25 INR 1.00 (0.93-1.08) 06/01/16 09:25 APTT 26.1 Seconds (23.7-30.8) 06/01/16 09:25 Sodium 134 mmol/L (132-148) 06/03/16 07:00 Potassium 3.4 mmol/L (3.6-5.0) L 06/03/16 07:00 Chloride 101 mmol/L (95-110) 06/03/16 07:00 Carbon Dioxide 25 mmol/L (21-33) 06/03/16 07:00 Anion Gap 11 (10-20) 06/03/16 07:00 BUN 13 mg/dL (7-21) 06/03/16 07:00 Creatinine 0.8 mg/dL (0.5-1.4) 06/03/16 07:00 Est GFR ( Amer) > 60 06/03/16 07:00 Est GFR (Non-Af Amer) > 60 06/03/16 07:00 Random Glucose 107 mg/dL (70-110) 06/03/16 07:00 Calcium 8.5 mg/dL (8.4-10.5) 06/03/16 07:00 Phosphorus 2.8 mg/dL (2.5-4.5) 06/03/16 10:00 Magnesium 1.9 mg/dL (1.7-2.2) 06/03/16 10:00 Total Bilirubin 1.0 mg/dL (0.2-1.3) 06/03/16 07:00 Direct Bilirubin 1.0 mg/dL (0.0-0.4) H 06/01/16 10:00 AST 67 U/L (15-59) H 06/03/16 07:00 ALT 83 U/L (7-56) H 06/03/16 07:00 Alkaline Phosphatase 51 U/L (38-133) 06/03/16 07:00 Total Protein 6.4 g/dL (5.8-8.3) 06/03/16 07:00 Albumin 3.5 g/dL (3.0-4.8) 06/03/16 07:00 Globulin 2.9 gm/dL 06/03/16 07:00 Albumin/Globulin Ratio 1.2 (1.1-1.8) 06/03/16 07:00 Procalcitonin 0.44 NG/ML (0.19-0.49) 06/01/16 10:30 TSH 3rd Generation 2.56 mIU/mL (0.46-4.68) 06/01/16 10:00 Urine Color Straw (YELLOW) 06/01/16 16:09 Urine Appearance Clear (CLEAR) 06/01/16 16:09 Urine pH 6.5 (4.7-8.0) 06/01/16 16:09 Ur Specific Searcy <= 1.005 (1.005-1.035) 06/01/16 16:09 Urine Protein Negative mg/dL (<30 mg/dL) 06/01/16 16:09 Urine Glucose (UA) 250 mg/dL (NEGATIVE) H 06/01/16 16:09 Urine Ketones 15 mg/dL (NEGATIVE) H 06/01/16 16:09 Urine Blood Trace-lysed (NEGATIVE) H 06/01/16 16:09 Urine Nitrate Negative (NEGATIVE) 06/01/16 16:09 Urine Bilirubin Small (NEGATIVE) H 06/01/16 16:09 Urine Urobilinogen 0.2 E.U./dL (<1 E.U./dL) 06/01/16 16:09 Ur Leukocyte Esterase Negative Kasia/uL (NEGATIVE) 06/01/16 16:09 Urine RBC Negative /hpf (0-2) 06/01/16 16:09 Urine WBC 0 - 2 /hpf (0-6) 06/01/16 16:09 Ur Epithelial Cells 0 - 2 /hpf (0-5) 06/01/16 16:09 Urine Bacteria Neg (NEG) 06/01/16 16:09 Urine Opiates Screen Negative (NEGATIVE) 06/01/16 22:01 Urine Methadone Screen Negative (NEGATIVE) 06/01/16 22:01 Ur Barbiturates Screen Negative (NEGATIVE) 06/01/16 22:01 Ur Phencyclidine Scrn Negative (NEGATIVE) 06/01/16 22:01 Ur Amphetamines Screen Negative (NEGATIVE) 06/01/16 22:01 U Benzodiazepines Scrn Negative (NEGATIVE) 06/01/16 22:01 U Oth Cocaine Metabols Negative (NEGATIVE) 06/01/16 22:01 U Cannabinoids Screen Negative (NEGATIVE) 06/01/16 22:01 Alcohol, Quantitative < 10 mg/dL (0-10) 06/01/16 09:25 Hepatitis A IgM Ab Negative (NEGATIVE) 06/02/16 07:00 Hep Bs Antigen Negative (NEGATIVE) 06/02/16 07:00 Hep B Core IgM Ab Negative (NEGATIVE) 06/02/16 07:00 Hepatitis C Antibody Negative (NEGATIVE) 06/02/16 07:00 Grp A Beta Strep Ag Negative (NEGATIVE) 06/01/16 17:45 - Hospital Course Hospital Course: 31 yo M with PMHx of HTN, anxiety, alcohol abuse, and pediatric seizures presented to [facility] ED for complaints of severe sore throat, epigastric pain, vomiting and diarrhea. Remote telemetry for alcohol withdrawal and acute kidney injury secondary to dehydration. IV hydration and multivitamins, folic acid and thiamine administered. Mild withdrawal tremors observed and treated with tapering dose of ativan. Rapid strep is negative. Hep panel and UDS negative. blood cxs pending. Alcohol cessation counselling provided. Pt refused to see psychiatry senior consumer insights consultant. On last night of hospital stay, patient reports nightmares, which is a chronic situation for him. Upon discharge in fair condition, patient instructed to follow up with PMD, his out pt psychiatry and take new prescriptions of Augmentin and promethazine, thiamine, folic acid and multivitamin. Discharge Exam - Additional Findings Additional findings: - Constitutional Appears: Well, Non-toxic - Head Exam Head Exam: ATRAUMATIC, NORMOCEPHALIC - Eye Exam Eye Exam: Normal appearance. absent: Conjunctival injection, Scleral icterus - ENT Exam ENT Exam: Mucous Membranes Moist - Respiratory Exam Respiratory Exam: Clear to Ausculation Bilateral. absent: Accessory Muscle Use , Respiratory Distress - Cardiovascular Exam Cardiovascular Exam: +S1, +S2. absent: Murmur, bradycardia - GI/Abdominal Exam GI & Abdominal Exam: Soft. absent: Distended, Tenderness - Extremities Exam Extremities Exam: absent: Calf Tenderness, Pedal Edema, Tenderness - Back Exam Back Exam: absent: CVA tenderness (L), CVA tenderness (R), vertebral tenderness - Neurological Exam Neurological Exam: Alert, Awake, Oriented x3 Additional comments: no tremor - Psychiatric Exam Psychiatric exam: Normal Affect, Normal Mood - Skin Skin Exam: Intact, Normal Color, Warm Discharge Plan - Discharge Medications Prescriptions: Amoxicillin/Clavulanate [Augmentin 875 MG-125 MG Tab] 1 tab PO Q12 #8 tab Folic Acid 1 mg PO DAILY #14 tab Multivitamin [Men's Multi-Vitamin] 1 each PO DAILY #14 tablet Promethazine [Phenergan Syrup] 12.5 mg PO PRN PRN #10 dose PRN Reason: Cough Thiamine [Vitamin B-1] 100 mg PO DAILY #14 tab - Follow Up Plan Condition: FAIR Disposition: HOME/ ROUTINE Instructions: Alcohol Intoxication (DC), Atrial Tachycardia (DC) Additional Instructions: You are discharged. Please take new prescriptions as directed. Please return to emergency department if symptoms worsen. Please follow-up with psychiatry after discharge. Please follow-up with your primary medical doctor within 2 weeks from discharge. Referrals: PCP,JEANE [Primary Care Provider] - Follow up with primary <Maya Barreto - Last Filed: 06/16/16 17:33> Provider - Provider Date of Admission: 06/01/16 14:07 Attending physician: Maya Barreto MD Primary care physician: JEANE PRIMARY CARE PROVIDER Hospital Course - Lab Results Lab Results: Micro Results 06/01/16 15:30 Blood Blood Culture - Final NO GROWTH AFTER 5 DAYS 06/01/16 15:30 Blood Gram Stain - Final TEST NOT PERFORMED 06/01/16 15:00 Blood Blood Culture - Final NO GROWTH AFTER 5 DAYS 06/01/16 15:00 Blood Gram Stain - Final TEST NOT PERFORMED 06/01/16 17:45 Urine Urine Culture - Final No Growth (<1,000 CFU/ML) 06/01/16 17:45 Throat Group A Strep Throat Culture - Final NO BETA STREP GROUP A ISOLATED. Most Recent Lab Values WBC 7.0 10^3/ul (4.5-11.0) D 06/03/16 07:00 RBC 4.36 10^6/uL (3.5-6.1) 06/03/16 07:00 Hgb 12.8 gm/dL (14.0-18.0) L 06/03/16 07:00 Hct 37.3 % (42.0-52.0) L 06/03/16 07:00 MCV 85.6 fL (80.0-105.0) 06/03/16 07:00 MCH 29.4 pg (25.0-35.0) 06/03/16 07:00 MCHC 34.3 g/dl (31.0-37.0) 06/03/16 07:00 RDW 13.4 % (11.5-14.5) 06/03/16 07:00 Plt Count 123 10^3/uL (120.0-450.0) 06/03/16 07:00 MPV 9.5 fl (7.0-11.0) 06/03/16 07:00 Gran % 67.0 % (50.0-68.0) 06/03/16 07:00 Lymph % (Auto) 21.6 % (22.0-35.0) L 06/03/16 07:00 Letcher % (Auto) 10.0 % (1.0-6.0) H 06/03/16 07:00 Eos % (Auto) 1.3 % (1.5-5.0) L 06/03/16 07:00 Baso % (Auto) 0.1 % (0.0-3.0) 06/03/16 07:00 Gran # 4.67 (1.4-6.5) 06/03/16 07:00 Lymph # 1.5 (1.2-3.4) 06/03/16 07:00 Letcher # 0.7 (0.1-0.6) H 06/03/16 07:00 Eos # 0.1 (0.0-0.7) 06/03/16 07:00 Baso # 0.01 K/mm3 (0.0-2.0) 06/03/16 07:00 PT 10.8 Seconds (9.9-11.8) 06/01/16 09:25 INR 1.00 (0.93-1.08) 06/01/16 09:25 APTT 26.1 Seconds (23.7-30.8) 06/01/16 09:25 Sodium 134 mmol/L (132-148) 06/03/16 07:00 Potassium 3.4 mmol/L (3.6-5.0) L 06/03/16 07:00 Chloride 101 mmol/L (95-110) 06/03/16 07:00 Carbon Dioxide 25 mmol/L (21-33) 06/03/16 07:00 Anion Gap 11 (10-20) 06/03/16 07:00 BUN 13 mg/dL (7-21) 06/03/16 07:00 Creatinine 0.8 mg/dL (0.5-1.4) 06/03/16 07:00 Est GFR ( Amer) > 60 06/03/16 07:00 Est GFR (Non-Af Amer) > 60 06/03/16 07:00 Random Glucose 107 mg/dL (70-110) 06/03/16 07:00 Calcium 8.5 mg/dL (8.4-10.5) 06/03/16 07:00 Phosphorus 2.8 mg/dL (2.5-4.5) 06/03/16 10:00 Magnesium 1.9 mg/dL (1.7-2.2) 06/03/16 10:00 Total Bilirubin 1.0 mg/dL (0.2-1.3) 06/03/16 07:00 Direct Bilirubin 1.0 mg/dL (0.0-0.4) H 06/01/16 10:00 AST 67 U/L (15-59) H 06/03/16 07:00 ALT 83 U/L (7-56) H 06/03/16 07:00 Alkaline Phosphatase 51 U/L (38-133) 06/03/16 07:00 Total Protein 6.4 g/dL (5.8-8.3) 06/03/16 07:00 Albumin 3.5 g/dL (3.0-4.8) 06/03/16 07:00 Globulin 2.9 gm/dL 06/03/16 07:00 Albumin/Globulin Ratio 1.2 (1.1-1.8) 06/03/16 07:00 Procalcitonin 0.44 NG/ML (0.19-0.49) 06/01/16 10:30 TSH 3rd Generation 2.56 mIU/mL (0.46-4.68) 06/01/16 10:00 Urine Color Straw (YELLOW) 06/01/16 16:09 Urine Appearance Clear (CLEAR) 06/01/16 16:09 Urine pH 6.5 (4.7-8.0) 06/01/16 16:09 Ur Specific [place] <= 1.005 (1.005-1.035) 06/01/16 16:09 Urine Protein Negative mg/dL (<30 mg/dL) 06/01/16 16:09 Urine Glucose (UA) 250 mg/dL (NEGATIVE) H 06/01/16 16:09 Urine Ketones 15 mg/dL (NEGATIVE) H 06/01/16 16:09 Urine Blood Trace-lysed (NEGATIVE) H 06/01/16 16:09 Urine Nitrate Negative (NEGATIVE) 06/01/16 16:09 Urine Bilirubin Small (NEGATIVE) H 06/01/16 16:09 Urine Urobilinogen 0.2 E.U./dL (<1 E.U./dL) 06/01/16 16:09 Ur Leukocyte Esterase Negative Kasia/uL (NEGATIVE) 06/01/16 16:09 Urine RBC Negative /hpf (0-2) 06/01/16 16:09 Urine WBC 0 - 2 /hpf (0-6) 06/01/16 16:09 Ur Epithelial Cells 0 - 2 /hpf (0-5) 06/01/16 16:09 Urine Bacteria Neg (NEG) 06/01/16 16:09 Urine Opiates Screen Negative (NEGATIVE) 06/01/16 22:01 Urine Methadone Screen Negative (NEGATIVE) 06/01/16 22:01 Ur Barbiturates Screen Negative (NEGATIVE) 06/01/16 22:01 Ur Phencyclidine Scrn Negative (NEGATIVE) 06/01/16 22:01 Ur Amphetamines Screen Negative (NEGATIVE) 06/01/16 22:01 U Benzodiazepines Scrn Negative (NEGATIVE) 06/01/16 22:01 U Oth Cocaine Metabols Negative (NEGATIVE) 06/01/16 22:01 U Cannabinoids Screen Negative (NEGATIVE) 06/01/16 22:01 Alcohol, Quantitative < 10 mg/dL (0-10) 06/01/16 09:25 Hepatitis A IgM Ab Negative (NEGATIVE) 06/02/16 07:00 Hep Bs Antigen Negative (NEGATIVE) 06/02/16 07:00 Hep B Core IgM Ab Negative (NEGATIVE) 06/02/16 07:00 Hepatitis C Antibody Negative (NEGATIVE) 06/02/16 07:00 Grp A Beta Strep Ag Negative (NEGATIVE) 06/01/16 17:45 Attending/Attestation - Attestation I have personally seen and examined this patient.: Yes I have fully participated in the care of the patient.: Yes I have reviewed all pertinent clinical information, including history, physical exam and plan: Yes Notes (Text): I have seen and examined patient at bedside. 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 Dehydration has resolved. Rapid strep is negative. Hep panel and UDS negative. Alcohol cessation counselling provided. Patients mother is at bedside who informed us that patient and his has been binge drinking alcohol. He has anxiety disorder and has an appointment to see outpatient psychiatrist. At this time, patient is alert, active, oriented x 3 and appears calm. He is able to walk in a steady state. Denies headache, nausea, vomiting or diarrhea. No suicidal or homicidal ideation. Patient is not willing to see any psychiatrist. Patient will follow up with Dr Hinton. Dr Maya Barreto 06/16/16 17:32
== END 2016-06-03 12:04 | disposition home or self-care (01) | DRG 897 ==
LOC: ED 08:48 → EROBSV 11:44 → OBSVTOIN 14:07 → ERH 16:11 → 3RSO 17:57
PROVIDERS: ADMIT Hospitalist; ATTEND Hospitalist
DX: F10.239 Alcohol dependence with withdrawal, unspecified (principal); N17.9 Acute kidney failure, unspecified; R56.9 Unspecified convulsions; E86.0 Dehydration; J03.90 Acute tonsillitis, unspecified; I10 Essential (primary) hypertension; F41.9 Anxiety disorder, unspecified; E87.6 Hypokalemia; D72.829 Elevated white blood cell count, unspecified; R00.0 Tachycardia, unspecified; Y90.0 Blood alcohol level of less than 20 mg/100 ml

== ENCOUNTER 2016-09-29 09:36 | Emergency (ER) | payer OTHER ==
[2016-09-29 09:40] VITALS: BMI 30.7
[2016-09-29] MEDS ORDERED: Multivitamin (MVI) 10 ML, Thiamine 100 MG, Folic Acid 1 MG in Sodium Chloride 0.9% 1,00... IV ONE (09:53)
--- NOTE | 2016-09-29 09:53 | ED PDOC ---
Arrival/HPI - General Chief Complaint: Alcohol Ingestion Time Seen by Provider: 09/29/16 09:44 Historian: Patient - History of Present Illness Narrative History of Present Illness (Text): 09/29/16 09:44 31 y/o male, pmh including htn, psychiatric history of alcohol withdrawal and alcohol abuse, nkda, c/o feeling anxious x 3 days. Pt. stated that he suddenly stop drinking about 4 days ago, had nausea/vomiting/diarrhea and shakes about 2 days ago, been doing well, only feeling anxious now, stated that withdrawal symptom has been decreased. Pt. stated that he just needs fluid and ativan IV, no nausea or vomiting, declined detox at healthcare facility or to be admitted. Pt. has no homicidal or suicidal ideation, no auditory or visual hallucination , no other medical or psychological complaints. Past Medical History - Provider Review Nursing Documentation Reviewed: Yes - Infectious Disease Hx of Infectious Diseases: None - Cardiac Hx Cardiac Disorders: Yes Hx Hypertension: Yes - Pulmonary Hx Respiratory Disorders: No - Neurological Hx Neurological Disorder: Yes Hx Seizures: Yes (childhood x2, 8 and 10 yrs old) - HEENT Hx HEENT Disorder: No - Renal Hx Renal Disorder: No - Endocrine/Metabolic Hx Endocrine Disorders: No - Hematological/Oncological Hx Blood Disorders: No - Integumentary Hx Dermatological Disorder: No - Musculoskeletal/Rheumatological Hx Musculoskeletal Disorders: Yes Hx Falls: Yes (fell yesterday) - Gastrointestinal Hx Gastrointestinal Disorders: No - Genitourinary/Gynecological Hx Genitourinary Disorders: No - Psychiatric Hx Psychophysiologic Disorder: Yes Hx Anxiety: Yes Hx Substance Use: No (pt denies) Other/Comment: drinks vodka or beer daily, binge drinks over the last 3 years - Anesthesia Hx Anesthesia: No Family/Social History - Physician Review Nursing Documentation Reviewed: Yes Family/Social History: Unknown Family HX Smoking Status: Never Smoked Hx Alcohol Use: Yes (vodka/beer binge drinks last drink was sunday) Hx Substance Use: No (pt denies) Allergies/Home Meds Allergies/Adverse Reactions: Allergies No Known Allergies Allergy (Verified 06/01/16 08:59) Home Medications: Home Meds Medication Instructions Recorded Confirmed Lisinopril [Zestril] 20 mg PO DAILY 06/01/16 09/29/16 hydroCHLOROthiazide [Hydrodiuril] 25 mg PO DAILY 06/01/16 09/29/16 Review of Systems - Review of Systems Constitutional: absent: Fatigue, Fevers Eyes: absent: Vision Changes ENT: absent: Hearing Changes Respiratory: absent: SOB, Cough Cardiovascular: absent: Chest Pain Gastrointestinal: absent: Abdominal Pain, Nausea, Vomiting Skin: absent: Rash, Pruritis Hemo/Lymphatic: absent: Adenopathy, Easy Bleeding Physical Exam Vital Signs Reviewed: Yes Vital Signs Temp Pulse Resp BP Pulse Ox 09/29/16 11:50 98.9 F 74 18 115/70 97 09/29/16 09:43 99.2 F 86 19 132/96 H 98 Temperature: Afebrile Blood Pressure: Hypertensive Pulse: Regular Respiratory Rate: Normal Appearance: Positive for: Well-Appearing, Non-Toxic, Comfortable Pain Distress: None Mental Status: Positive for: Alert and Oriented X 3 - Systems Exam Head: Present: Atraumatic, Normocephalic Pupils: Present: PERRL Extroacular Muscles: Present: EOMI Conjunctiva: Present: Normal Mouth: Present: Moist Mucous Membranes Neck: Present: Normal Range of Motion Respiratory/Chest: Present: Clear to Auscultation, Good Air Exchange. No: Respiratory Distress, Accessory Muscle Use Cardiovascular: Present: Regular Rate and Rhythm, Normal S1, S2. No: Murmurs Abdomen: Present: Normal Bowel Sounds. No: Tenderness, Distention, Peritoneal Signs Back: Present: Normal Inspection Upper Extremity: Present: Normal Inspection. No: Cyanosis, Edema Lower Extremity: Present: Normal Inspection. No: Edema Neurological: Present: GCS=15, CN II-XII Intact, Speech Normal Skin: Present: Warm, Dry, Normal Color. No: Rashes Psychiatric: Present: Alert, Oriented x 3, Normal Insight, Normal Concentration , Anxious Medical Decision Making ED Course and Treatment: 09/29/16 10:06 -I reviewed the [facility] report and reviewed it with DR. Rogers from [facility] states, DR. Rogers agreed to prescribed librium for temporary -Labs/IVF/banana bag/1mg ativan -I offered detox for the patient but the patient refused. I advised the patient to return to the ER for any new or worsening signs or symptoms. 09/29/16 12:44 -Labs are non-significant except BUN 24, mild elevation of LFTs. -Pt. feels well and better, would like another fluid and ativan ordered for him prior to discharge. -I offered detox for the patient but the patient refused again, labs discussed. I advised the patient to return to the ER for any new or worsening signs or symptoms, pt. verbally expressed understanding. -Discharge home with librium, stay hydrated, list of detox facilities, bed rest , follow up with your own pmd and psychiatrist within 2 days, return to the ER for any new or worsening signs or symptoms. - Lab Interpretations Lab Results: 09/29/16 10:24 09/29/16 10:24 Lab Results 09/29/16 10:24: Alcohol, Quantitative < 10 09/29/16 10:24: Sodium 137, Potassium 3.6, Chloride 95 L, Carbon Dioxide 26, Anion Gap 20, BUN 24 H, Creatinine 1.1, Est GFR ( Amer) > 60, Est GFR ( Non-Af Amer) > 60, Random Glucose 92, Calcium 10.0, Magnesium 1.8, Total Bilirubin 1.1, AST 92 H, ALT 124 H, Alkaline Phosphatase 82, Total Protein 7.1, Albumin 4.8, Globulin 2.3, Albumin/Globulin Ratio 2.1 H 09/29/16 10:24: WBC 7.9, RBC 5.17, Hgb 15.3, Hct 42.6, MCV 82.4, MCH 29.6, MCHC 35.9, RDW 13.3, Plt Count 189, MPV 9.5, Gran % 71.0 H, Lymph % (Auto) 18.0 L, [place] % (Auto) 8.8 H, Eos % (Auto) 1.9, Baso % (Auto) 0.3, Gran # 5.60, Lymph # 1.4, [place] # 0.7 H, Eos # 0.2, Baso # 0.02 I have reviewed the lab results: Yes Interpretation: Abnormal lab values (BUN 24, mild elevatio of LFTs.) - Medication Orders Current Medication Orders: Sodium Chloride (Sodium Chloride 0.9%) 1,000 mls @ 999 mls/hr IV .Q1H1M STA Stop: 09/29/16 13:31 Discontinued Medications Multivitamins/Vitamin C 10 ml/Thiamine HCl 100 mg/ Folic Acid 1 mg/ Sodium Chloride 1,011.2 mls @ 500 mls/hr IV .Q2H2M ONE Stop: 09/29/16 11:54 Last Admin: 09/29/16 10:32 Dose: 500 mls/hr Lorazepam (Ativan) 1 mg IVP ONCE ONE PRN Reason: Protocol Stop: 09/29/16 09:54 Last Admin: 09/29/16 10:25 Dose: 1 mg - 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 Disposition/Present on Arrival - Present on Arrival Any Indicators Present on Arrival: No History of DVT/PE: No History of Uncontrolled Diabetes: No Urinary Catheter: No History of Decub. Ulcer: No History Surgical Site Infection Following: None - Disposition Have Diagnosis and Disposition been Completed?: Yes Diagnosis: Anxiety, History of alcohol abuse Disposition: HOME/ ROUTINE Disposition Time: 10:08 Patient Plan: Discharge Patient Problems: Current Active Problems Problem Status Onset Anxiety Acute Condition: IMPROVED Additional Instructions: -Discharge home with librium, stay hydrated, list of detox facilities, bed rest , follow up with your own pmd and psychiatrist within 2 days, return to the ER for any new or worsening signs or symptoms. Librium Taping Dose: 2 capsules oral 3 times daily on day 1, 2 capsules oral 2 times daily on day 2, 2 capsules oral once daily on day 3, 1 capsule oral daily on day 4 Prescriptions: chlordiazePOXIDE [Chlordiazepoxide HCl] 1 cap PO DAILY #13 cap Referrals: Sindy Hinton MD [Primary Care Provider] - Follow up with primary [facility] [[facility]] - Follow up with primary Forms: [facility] (Bulgarian), WORK NOTE
[2016-09-29 10:32] LABS: BASO # 0.02 K/mm3 (0.0-2.0); BASO % 0.3 % (0.0-3.0); EOS # 0.2 (0.0-0.7); EOS % 1.9 % (1.5-5.0); HEMOGLOBIN 15.3 g/dL (14.0-18.0); LYMPH # 1.4 (1.2-3.4); MEAN CELL VOLUME 82.4 fl (80.0-105.0); MEAN CORPUSCULAR HEMOGLOBIN 29.6 pg (25.0-35.0); MEAN CORPUSCULAR HGB CONC 35.9 g/dl (31.0-37.0); MEAN PLATELET VOLUME 9.5 fl (7.0-11.0); MONO # 0.7 (0.1-0.6); MONO % 8.8 % (1.0-6.0); PLATELET COUNT 189 10^3/uL (120.0-450.0); RBC 5.17 10^6/uL (3.5-6.1); RED CELL DISTRIBUTION WIDTH 13.3 % (11.5-14.5); WHITE BLOOD COUNT 7.9 10^3/ul (4.5-11.0)
[2016-09-29 11:51] VITALS: TEMP 98.9
[2016-09-29 12:25] LABS: ALB/GLOB RATIO 2.1 (1.1-1.8); ALBUMIN 4.8 g/dL (3.0-4.8); ALT/SGPT 124 U/L (7-56); AST/SGOT 92 U/L (15-59); BLOOD UREA NITROGEN 24 mg/dL (7-21); GFR AFRICAN-AMERICAN > 60; GFR NON-AFRICAN AMERICAN > 60; MAGNESIUM 1.8 mg/dL (1.7-2.2)
[2016-09-29] MEDS ORDERED: Sodium Chloride 0.9% 1,000 ML IV STA (12:31)
[2016-09-29] MEDS ORDERED: Sodium Chloride 0.9% 1,000 ML IV SCH (12:45)
[2016-09-29 13:46] VITALS: BP 114/61; PULSE 73; RESP 16; O2SAT 100
== END 2016-09-29 14:21 | disposition home or self-care (01) ==
LOC: ED 09:36
DX: F41.9 Anxiety disorder, unspecified (principal); F10.10 Alcohol abuse, uncomplicated; I10 Essential (primary) hypertension
CPT/HCPCS: 80053; 80320; 83735; 85025; 96361; 96365; 96366; 96375; 96376; 99285; J2060; J3411; J7040